=== PATIENT | male | born 1980 | race Caucasian/White ===

== ENCOUNTER 2019-04-13 16:31 | Emergency (ER) | payer BC ==
[~2019-04-13] VITALS: Ht 175.3 cm; Wt 99.3 kg
[2019-04-13 17:49] VITALS: BP 134/78
== END 2019-04-13 17:49 | disposition home or self-care (01) ==
LOC: ER 16:31
DX: H57.11 Ocular pain, right eye (principal); Z77.098 Contact with and (suspected) exposure to other hazardous, chiefly nonmedicinal, chemicals